=== PATIENT | female | born 2000 ===

== ENCOUNTER 2021-02-06 20:22 | Observation (INO) ==
[2021-02-07] MEDS ORDERED: HYDROmorphone 2 MG/1 ML VIAL IV STA (03:39)
[2021-02-07] MEDS ORDERED: PIPERACILLIN/TAZOBACTAM 3,375 MG in SODIUM CHLORIDE 0.9% 100 ML IV STA (03:39)
[2021-02-07] MEDS ORDERED: SODIUM CHLORIDE 0.9% 1,000 ML IV STA (03:39)
[2021-02-07] MEDS ORDERED: PANTOPRAZOLE 40 MG VIAL IV STA (03:39)
[2021-02-07] MEDS ORDERED: ONDANSETRON 4 MG/2 ML VIAL IV STA (03:39)
[2021-02-07] MEDS ORDERED: DEXTROSE 50% 25 GM/50 ML VIAL IV PRN (04:24)
[2021-02-07] MEDS ORDERED: NICOTINE 21 MG/24 HR PATCH TRANSDERM PRN (04:24)
[2021-02-07] MEDS ORDERED: ONDANSETRON 4 MG/2 ML VIAL IV PRN (04:24)
[2021-02-07] MEDS ORDERED: ACETAMINOPHEN 325 MG TABLET PO PRN (04:24)
[2021-02-07] MEDS ORDERED: GLUCAGON 1 MG VIAL IM PRN (04:24)
[2021-02-07] MEDS ORDERED: diphenhydrAMINE CAP 25 MG CAPSULE PO PRN (04:24)
[2021-02-07 04:48] LABS: Basophils % 0.4 % (0.0-0.8); Eosinophils # 0.2 10*3/uL (0.0-0.87); Eosinophils % 2.1 % (0.00-10.9); Hematocrit 36.5 VOL% (35.7-47.0); Hemoglobin 11.9 GM/DL (12.0-16.0); Immature Granulocytes % 0.3 %; Immature Granulocytes Absolute 0.03 #; Lymphocytes # 2.5 10*3/uL (1.4-4.0); Lymphocytes % 26.7 % (21.3-54.2); Mean Corpuscular HGB Conc 32.6 GM/DL (32-36); Mean Corpuscular Volume 84.7 FL (87-102); Mean Platelet Volume 10.1 FL (9.6-12.0); Monocytes % 6.2 % (1.7-12.7); Neutrophils % 64.3 % (38.7-73.9); Platelet Count 312 T/CUMM (130-400); Red Blood Count 4.31 MC/CUMM (3.8-5.5); Red Cell Distribution Width 14.8 % (9.3-17.3); White Blood Count 9.2 T/CUMM (4-12)
[2021-02-07 05:09] LABS: Albumin 3.3 G/DL (3.4-5.0); Bilirubin,Total 4.5 MG/DL (0.2-1.0); Osmolality,Calculated 279.4 MOS/KG (273-304); Potassium 4.1 MMOL/L (3.5-5.1); Total Protein 7.2 G/DL (6.4-8.2)
[2021-02-07 05:11] LABS: Risk Ratio 2.64; VLDL CHOLESTEROL 11.8 MG/DL
[2021-02-07] MEDS ORDERED: INDOMETHACIN SUPP 50 MG SUPP RECTAL ONE (07:56)
[2021-02-07] MEDS: SODIUM CHLORIDE 0.9% 1,000 ML IV SCH ×2 (08:20→14:27)
[2021-02-07 08:40] LABS: INR 1.1; PT Patient Result 11.9 SECS (10.5-12.0)
[2021-02-07] MEDS ORDERED: SUCCINYLCHOLINE 200 MG/10 ML VIAL ONE (09:10)
[2021-02-07] MEDS ORDERED: fentaNYL 100 MCG/2 ML VIAL ONE ×2 (09:10→10:18)
[2021-02-07] MEDS ORDERED: propofoL 200 MG/20 ML VIAL IV ONE (09:10)
[2021-02-07] MEDS ORDERED: LIDOCAINE 2% 5 ML VIAL ONE (09:10)
[2021-02-07] MEDS ORDERED: MIDAZOLAM 2 MG/2 ML VIAL ONE (09:11)
[2021-02-07] MEDS ORDERED: SEVOFLURANE 1 UNIT/15 MINUTE INH ONE (09:15)
[2021-02-07] MEDS: LACTATED RINGERS 1,000 ML IV SCH ×2 (09:20→12:02)
[2021-02-07] MEDS ORDERED: DEXAMETHASONE 4 MG/1 ML VIAL ONE (10:17)
[2021-02-07] MEDS: PIPERACILLIN/TAZOBACTAM 3,375 MG in SODIUM CHLORIDE 0.9% 100 ML IV SCH ×2 (13:03→20:35)
[2021-02-07] MEDS ORDERED: INDOCYANINE GREEN 25 MG VIAL IV ONE (14:00)
[2021-02-08 05:14] LABS: Basophils % 0.2 % (0.0-0.8); Eosinophils # 0.1 10*3/uL (0.0-0.87); Eosinophils % 1.1 % (0.00-10.9); Hemoglobin 10.4 GM/DL (12.0-16.0); Immature Granulocytes % 0.4 %; Immature Granulocytes Absolute 0.04 #; Lymphocytes # 2.4 10*3/uL (1.4-4.0); Lymphocytes % 26.3 % (21.3-54.2); Mean Corpuscular HGB Conc 32.5 GM/DL (32-36); Mean Corpuscular Volume 85.3 FL (87-102); Mean Platelet Volume 10.4 FL (9.6-12.0); Monocytes % 6.3 % (1.7-12.7); Neutrophils % 65.7 % (38.7-73.9); Platelet Count 268 T/CUMM (130-400); Red Blood Count 3.75 MC/CUMM (3.8-5.5); Red Cell Distribution Width 14.9 % (9.3-17.3); White Blood Count 9.2 T/CUMM (4-12)
[2021-02-08] MEDS: SODIUM CHLORIDE 0.9% 1,000 ML IV SCH ×2 (05:16→13:36)
[2021-02-08] MEDS: PIPERACILLIN/TAZOBACTAM 3,375 MG in SODIUM CHLORIDE 0.9% 100 ML IV SCH ×3 (05:16→20:45)
[2021-02-08 05:46] LABS: Albumin 2.8 G/DL (3.4-5.0); Bilirubin,Total 1.1 MG/DL (0.2-1.0); Calcium 8.1 MG/DL (8.5-10.1); Osmolality,Calculated 281.1 MOS/KG (273-304); Potassium 3.5 MMOL/L (3.5-5.1); Total Protein 6.3 G/DL (6.4-8.2)
[2021-02-08] MEDS: LACTATED RINGERS 1,000 ML IV SCH (09:12)
[2021-02-08] MEDS: MORPHINE 4 MG/1 ML VIAL IV PRN ×3 (09:13→20:45)
[2021-02-08] MEDS ORDERED: MIDAZOLAM 2 MG/2 ML VIAL ONE (10:45)
[2021-02-08] MEDS ORDERED: ONDANSETRON 4 MG/2 ML VIAL ONE (10:45)
[2021-02-08] MEDS ORDERED: ROCURONIUM 50 MG/5 ML VIAL IV ONE (10:45)
[2021-02-08] MEDS ORDERED: propofoL 200 MG/20 ML VIAL IV ONE (10:45)
[2021-02-08] MEDS ORDERED: fentaNYL 100 MCG/2 ML VIAL ONE ×3 (10:45→12:28)
[2021-02-08] MEDS ORDERED: LIDOCAINE 2% 5 ML VIAL ONE (10:45)
[2021-02-08] MEDS ORDERED: TISSUE ADHESIVE 1 EACH APPLICATOR TOP ONE (10:49)
[2021-02-08] MEDS ORDERED: LIDOCAINE 1%/EPI INJ 20 ML VIAL ONE (10:49)
[2021-02-08] MEDS ORDERED: FAMOTIDINE 20 MG/2 ML VIAL IV ONE (11:10)
[2021-02-08] MEDS ORDERED: ESMOLOL 100 MG/10 ML VIAL IV ONE (11:58)
[2021-02-08] MEDS ORDERED: ACETAMINOPHEN INJ 1,000 MG/100 ML VIAL IV ONE (11:58)
[2021-02-08] MEDS ORDERED: KETOROLAC 30 MG/1 ML VIAL ONE (12:08)
[2021-02-08] MEDS ORDERED: hydrALAZINE 20 MG/1 ML VIAL ONE (12:10)
[2021-02-08] MEDS ORDERED: NEOSTIGMINE 10 MG/10 ML VIAL ONE (12:24)
[2021-02-08] MEDS ORDERED: SEVOFLURANE 1 UNIT/15 MINUTE INH ONE (12:38)
[2021-02-08] MEDS ORDERED: HYDROmorphone 2 MG/1 ML VIAL IV PRN (12:53)
[2021-02-08] MEDS ORDERED: ONDANSETRON 4 MG/2 ML VIAL IV PRN (12:53)
[2021-02-09 05:00] LABS: Basophils % 0.4 % (0.0-0.8); Eosinophils # 0.1 10*3/uL (0.0-0.87); Eosinophils % 1.1 % (0.00-10.9); Hematocrit 32.6 VOL% (35.7-47.0); Hemoglobin 10.5 GM/DL (12.0-16.0); Immature Granulocytes % 1.1 %; Lymphocytes # 2.9 10*3/uL (1.4-4.0); Mean Corpuscular HGB Conc 32.2 GM/DL (32-36); Mean Corpuscular Volume 85.8 FL (87-102); Mean Platelet Volume 10.2 FL (9.6-12.0); Monocytes % 7.2 % (1.7-12.7); Neutrophils % 59.2 % (38.7-73.9); Platelet Count 278 T/CUMM (130-400); Red Cell Distribution Width 15.2 % (9.3-17.3); White Blood Count 9.3 T/CUMM (4-12)
[2021-02-09] MEDS: SODIUM CHLORIDE 0.9% 1,000 ML IV SCH ×2 (05:06→06:39)
[2021-02-09] MEDS: MORPHINE 4 MG/1 ML VIAL IV PRN (05:07)
[2021-02-09] MEDS: PIPERACILLIN/TAZOBACTAM 3,375 MG in SODIUM CHLORIDE 0.9% 100 ML IV SCH (05:07)
[2021-02-09 05:11] LABS: Bilirubin,Total 1.3 MG/DL (0.2-1.0); Calcium 8.4 MG/DL (8.5-10.1); Osmolality,Calculated 275.4 MOS/KG (273-304); Potassium 3.4 MMOL/L (3.5-5.1); Total Protein 6.4 G/DL (6.4-8.2)
[2021-02-09] MEDS ORDERED: POTASSIUM CHLORIDE 20 MEQ TABLET PO ONE (10:00)
[2021-02-09 11:09] VITALS: BP 131/65
== END 2021-02-09 14:00 | disposition home or self-care (01) ==
LOC: N.ED 20:22 → N.EDINP 20:22 → N.3E 02-07 06:02
PROVIDERS: ADMIT Hospitalist; ATTEND Hospitalist
PROC: ERCPWSP (ICD-10-PCS; 2021-02-07 09:00)